=== PATIENT | male | born 1970 | race Caucasian/White ===

== ENCOUNTER 2016-06-04 23:17 | Emergency (ER) | payer SELFPAY ==
[~2016-06-04 23:17] MED LIST: AMOX1TAB67 PO; BACTDS PO; CEPH-443 PO; HYDR-3498 PO
== END 2016-06-05 01:35 | disposition left against medical advice (07) ==
LOC: E/R 23:17
DX: Z53.21 Procedure and treatment not carried out due to patient leaving prior to being seen by health care provider (principal)

== ENCOUNTER 2017-04-12 18:11 | Emergency (ER) | END 2017-04-13 00:45 | disposition left against medical advice (07) ==

== ENCOUNTER 2017-11-08 21:32 | Emergency (ER) | END 2017-11-09 00:48 | disposition left against medical advice (07) ==

== ENCOUNTER 2018-07-02 17:37 | Inpatient (IN) | payer OTHER ==
[~2018-07-02] VITALS: Ht 180.3 cm; Wt 63.1 kg
[2018-07-02] MEDS ORDERED: SOD CHLORIDE 0.9% 1,000 ML IV STA (18:01)
[2018-07-02] MEDS ORDERED: ONDANSETRON 4 MG INJ IV STA (18:01)
[2018-07-02] MEDS ORDERED: HYDROmorphONE 1 MG/ML SYG IV STA (18:01)
[2018-07-02] MEDS ORDERED: CEFTRIAXONE 1 GM/50 ML (PMX) 50 ML IVPB ONE (20:00)
[2018-07-02] MEDS ORDERED: CEFEPIME 2GM/50 ML (PMX) 50 ML IVPB STA (21:01)
[2018-07-02] MEDS ORDERED: HYDROmorphONE 2 MG/ML SYG IV STA (21:02)
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
[2018-07-02] MEDS ORDERED: VANCOMYCIN 1 GM (PMX) 250 ML IVPB ONE (21:30)
[2018-07-02] MEDS ORDERED: ACETAMINOPHEN 325 MG TAB PO PRN (21:30)
[2018-07-02] MEDS ORDERED: ONDANSETRON 4 MG INJ IV PRN (21:30)
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
[2018-07-02 23:12] VITALS: Ht 180.3 cm; Wt 63.1 kg
[2018-07-02] MEDS ORDERED: DEXTROSE 5%-0.45% NACL 1,000 ML IV SCH (23:49)
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
[2018-07-03] MEDS ORDERED: ONDANSETRON 4 MG INJ IV PRN
[2018-07-03] MEDS ORDERED: NACL 0.9% 3 ML SYG IV SCH
[2018-07-03] MEDS ORDERED: ALBUTEROL/IPRATROPIUM (NEB) 3 ML AMP HHN PRN
[2018-07-03] MEDS: FAMOTIDINE 20 MG INJ IV SCH ×3 (01:25→21:13)
[2018-07-03] MEDS: morphine 2 MG INJ IV PRN ×2 (01:28→21:14)
[2018-07-03 02:00] VITALS: BP 130/73; PULSE 64; RESP 19
[2018-07-03] MEDS: PIPER-TAZO 3.375 GM IV (PMX) 100 ML IVPB SCH ×4 (05:10→23:43)
[2018-07-03] MEDS ORDERED: VANCOMYCIN 750 MG (PMX) 250 ML IVPB SCH (07:00)
[2018-07-03 08:03] VITALS: BP 111/52; PULSE 59; RESP 18
[2018-07-03] MEDS ORDERED: VANCOMYCIN IV PER PHARMACY XX SCH (09:00)
[2018-07-03] MEDS: HEPARIN 5,000 UNIT/1 ML VIAL SC SCH ×2 (09:00→21:00)
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
[2018-07-03 13:42] VITALS: BP 118/57; PULSE 59; RESP 17
[2018-07-03] MEDS: SOD FERRIC GLUC COMPLX 125 MG in SOD CHLORIDE 0.9% 100 ML IVPB SCH (14:13)
--- NOTE | 2018-07-03 14:38 | QN ---
Documentation Comment ID consult was requested by Dr. Montes De Oca. Dr. Amezcua will see pt later today or in AM. Thank you! RAY MELENDREZ NP Jul 03, 2018 14:38
[2018-07-03] MEDS: VANCOMYCIN HCL 1.25 GM in SOD CHLORIDE 0.9% 250 ML IVPB SCH (18:14)
[2018-07-03 20:00] VITALS: BP 128/67; PULSE 64; RESP 18
[2018-07-04 02:00] VITALS: BP 136/69; PULSE 60; RESP 17
[2018-07-04] MEDS: PIPER-TAZO 3.375 GM IV (PMX) 100 ML IVPB SCH (05:14)
[2018-07-04] MEDS: VANCOMYCIN HCL 1.25 GM in SOD CHLORIDE 0.9% 250 ML IVPB SCH (05:14)
[2018-07-04 07:47] VITALS: BP 127/69; PULSE 58; RESP 16
[2018-07-04] MEDS: HEPARIN 5,000 UNIT/1 ML VIAL SC SCH ×2 (09:00→20:24)
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
[2018-07-04] MEDS: FAMOTIDINE 20 MG INJ IV SCH (09:42)
[2018-07-04] MEDS: DAKINS 0.0125%(1/40) 473 ML SOLUTION TP SCH (09:43)
[2018-07-04] MEDS: AMPICILLIN/SULB 3 GM/NS (PMX) 100 ML IVPB SCH ×2 (12:46→18:03)
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
[2018-07-04] MEDS: SOD FERRIC GLUC COMPLX 125 MG in SOD CHLORIDE 0.9% 100 ML IVPB SCH (14:28)
[2018-07-04 14:55] VITALS: BP 114/54; PULSE 55; RESP 16
[2018-07-04 19:58] VITALS: BP 122/72; PULSE 64; RESP 20
[2018-07-04] MEDS: FAMOTIDINE 20 MG TAB PO SCH (20:23)
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
[2018-07-05] MEDS: AMPICILLIN/SULB 3 GM/NS (PMX) 100 ML IVPB SCH ×4 (00:03→18:00)
[2018-07-05] MEDS: morphine 2 MG INJ IV PRN (01:38)
[2018-07-05 01:46] VITALS: BP 130/61; PULSE 60; RESP 20
[2018-07-05 07:38] VITALS: BP 117/69; PULSE 52; RESP 16
[2018-07-05] MEDS: FAMOTIDINE 20 MG TAB PO SCH ×2 (09:54→20:34)
[2018-07-05] MEDS: HEPARIN 5,000 UNIT/1 ML VIAL SC SCH ×2 (09:55→20:25)
[2018-07-05] MEDS: DAKINS 0.0125%(1/40) 473 ML SOLUTION TP SCH (09:56)
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
[2018-07-05] MEDS: SOD FERRIC GLUC COMPLX 125 MG in SOD CHLORIDE 0.9% 100 ML IVPB SCH (13:34)
[2018-07-05 14:00] VITALS: BP 117/57; PULSE 90; RESP 16
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
[2018-07-05 19:46] VITALS: BP 123/63; PULSE 61; RESP 16
[2018-07-05] MEDS ORDERED: HYDROCODONE/APAP (5/325) TAB PO PRN (20:30)
[2018-07-06 02:00] VITALS: BP 142/78; PULSE 57; RESP 19
[2018-07-06] MEDS: AMPICILLIN/SULB 3 GM/NS (PMX) 100 ML IVPB SCH ×3 (06:00→12:00)
[2018-07-06 08:00] VITALS: BP 136/71; PULSE 65; RESP 18
[2018-07-06] MEDS: FAMOTIDINE 20 MG TAB PO SCH (09:08)
[2018-07-06] MEDS: HEPARIN 5,000 UNIT/1 ML VIAL SC SCH (09:08)
[2018-07-06] MEDS: DAKINS 0.0125%(1/40) 473 ML SOLUTION TP SCH (09:09)
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
[2018-07-06 14:00] VITALS: BP 128/72; PULSE 72; RESP 18
[2018-07-06] MEDS ORDERED: AMOX1TAB10 PO (16:50)
[2018-07-06] MEDS ORDERED: LACT1CAP57 PO (16:50)
--- NOTE | 2018-07-06 16:54 | PDOCDIS ---
Discharge Instructions CONDITION [id number] Patient Condition: [id number] Stable HOME CARE INSTRUCTIONS: [id number] Diet Instructions: [id number] Low Fat /Cholesterol ACTIVITY: [id number] Activity Restrictions: [id number] Slowly Increase Activity Rest between Activity FOLLOW UP/APPOINTMENTS Follow-up Plan Followup with your primary doctor within the next 1-2 weeks. If you don't have one please let someone know, we can give you resources that may help you pick one. You may call Dr Chan Morris's office. he's accepting new patients Name, Degree: Chan Morris MD Specialty: Internal Medicine Comments: Office Address: [address] [place] [address] [place] [id number] Office Office You may also call your insurance company to assign one to you. Review your medication list with your nurse before leaving and if you need new prescriptions please let your nurse know. I may have made changes to your home medications or given you new prescriptions, please let your primary doctor know as well. Stay compliant with your medications and report any side effects to your PCP or pharmacist. Return to the ER if you have any concerns and cannot reach your doctors or call your insurance company, they usually have a nurse that can help you. PASCUAL RUSSELL Jul 06, 2018 16:54
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
== END 2018-07-06 17:02 | disposition home health service (06) | DRG 593 ==
LOC: E/R 17:37 → 5EC 21:28
PROVIDERS: ADMIT Internal Medicine; ATTEND Family Medicine
DX: L89.44 Pressure ulcer of contiguous site of back, buttock and hip, stage 4 (principal); N30.01 Acute cystitis with hematuria; G82.20 Paraplegia, unspecified; M46.26 Osteomyelitis of vertebra, lumbar region; R16.0 Hepatomegaly, not elsewhere classified; D64.9 Anemia, unspecified; Z72.0 Tobacco use; D72.829 Elevated white blood cell count, unspecified; K59.00 Constipation, unspecified; D50.9 Iron deficiency anemia, unspecified; N18.9 Chronic kidney disease, unspecified; N30.20 Other chronic cystitis without hematuria
CPT/HCPCS: 74176; 80048; 80053; 81001; 82728; 83540; 83690; 83735; 84100; 85025; 85651; 86140; 87070; 87086; 93971; 96374; 96375; 96376; 97162; J0295; J0692; J0696; J1170; J1644; J2270; J2405; J2543; J2916; J3370; J7030; J7042; J7050